=== PATIENT | female | born 1945 ===

== ENCOUNTER 2022-02-21 18:58 | Emergency (ER) | payer SELFPAY ==
[~2022-02-21 18:58] MED LIST: ATROPINE 0.1% (1 MG/10 ML) CARDIAC SYRINGE ONE; CALCIUM CHLORIDE 1,000 MG/10 ML SYRINGE IV ONE; EPINEPHrine 1 MG/10 ML SYRINGE ONE; SODIUM BICARB 8.4% 50 MEQ/50 ML SYRINGE IV ONE
--- NOTE | 2022-02-21 19:04 | Emergency Department Report ---
ED CPR HPI - General Stated Complaint: CARDIAC ARREST Time Seen by Provider: 02/21/22 19:00 Source: family, EMS Mode of arrival: Stretcher Limitations: Altered Mental Status - History of Present Illness Initial Comments: pt was brought in by EMS intubated after family reported that she was found unresponsive , grand daughter went to shower and when she got out whe was unresponsive cold and food was coming out of her mouth , daughter started CPR and called EMS MD Complaint: found unresponsive Onset/Timin -: minute(s) Place: home Bystander CPR Performed: No AED Applied by Bystander/[place] Installer: Yes Shock Advised: No Initial Findings in the Field: unresponsive, no respirations, no pulse ROSC in the Field: No Associated Injuries: No Treatments Prior to Arrival: epinephrine mgs # (2) ED Review of Systems ROS: Stated complaint: CARDIAC ARREST Other details as noted in HPI Comment: Unobtainable due to pts medical conditions ED Physical Exam - General Limitations: Other (unresponsive ) - Head Head exam: Present: atraumatic, normocephalic - Respiratory Respiratory exam: Present: other (no spont breath ) - Cardiovascular Cardiovascular Exam: Present: other (no pulse ) - Expanded Neurological Exam Expanded Best Eye Response (Kayla): (1) no response Best Motor Response (Kayla): (1) no motor response Best Verbal Response ([place]): (1) no verbal response Kayla Total: 3 - EJ/Peripheral Line Neck L Indications: nurses unable to establis Size: 20 Dressing Placed: Tegaderm Patient Tolerated Procedure: well, no complications ED Medical Decision Making - Medical Decision Making pt arrived y EMS for cardiac arrest intubated 2 epi was given, rythm was PEA , 2 mor epis given bicarb ad calcium and narcan BSl was 250s, V fib noted shock at 200 KL , back to PEA, called at 1858 Critical Care Time: Yes Critical care attestation.: If time is entered above; I have spent that time in minutes in the direct care of this critically ill patient, excluding procedure time. ED Disposition Clinical Impression: Cardiac arrest Disposition: 20 Is pt being admited?: No Does the pt Need Aspirin: No Condition: Undetermined
== END 2022-02-21 20:50 ==
LOC: ED 18:58
DX: I46.9 Cardiac arrest, cause unspecified (principal)
CPT/HCPCS: 99285; J0171; J0461; J3490